=== PATIENT | male | born 1960 ===

== ENCOUNTER → 2020-08-23 | Outpatient (CLI) | payer OTHER ==
--- NOTE | 2020-08-23 12:13 | RAD ---
EXAM: XR EXAM OF ANKLE_LEFT 2V, XR KNEE 1-2 VIEWS, XR LUMBAR SPINE 2-3V 08/23/2020 9:34 AM CLINICAL INDICATION: Chronic left ankle pain, bilateral knee pain, lower back pain COMPARISON: None FINDINGS: Left ankle: There is no acute fracture. Alignment is normal. The talar dome is intact. Minimal degene rative changes at the tibiotalar joint and midfoot. There is a small plantar calcaneal enthesophyte. No focal soft tissue abnormality. Bilateral knees: Right: There is moderate tricompartmental joint space narrowing with osteophyte formation in the righ t knee. No acute fracture or malalignment. Small joint effusion. A few small phleboliths are noted in the soft tissues. Left: No acute fracture or malalignment. Joint spaces are maintained. There are tiny osteophytes. No joint effusion. There is mild pretibial soft tissue swelling with small phleboliths. Lumbar spine: There are 5 nonrib-bearing lumbar vertebral bodies. No acute fracture. There appears to be a 4 mm anterolisthesis of L5 on S1. Lungs otherwise normal. There is mild disc space at L4-L5 and L5-S1 with degenerative endplate changes. No significant facet arthrosis. Vascular calcifications ar e noted. IMPRESSION: 1. No significant degenerative joint disease of the left ankle or left ankle. 2. Moderate tricompartmental degenerative joint disease of the right knee. 3. Mild degenerative disc disease at L4-L5 and L5-S1. Electronically signed by: Renee Fraser MD (08/23/2020 12:11 PM) [id number]
== END ==
LOC: PF 09:06
PROVIDERS: ATTEND Surgery
DX: Z02.71 Encounter for disability determination (principal); M19.072 Primary osteoarthritis, left ankle and foot; M17.11 Unilateral primary osteoarthritis, right knee; M51.37 Other intervertebral disc degeneration, lumbosacral region
CPT/HCPCS: 72100; 73600; 94060; 94640; 73560-50; 94664